=== PATIENT | female | born 1970 | race Hispanic/Latino ===

== ENCOUNTER 2023-11-06 07:08 | Emergency (ER) | payer OTHER ==
[~2023-11-06] VITALS: Ht 165.1 cm; Wt 95.3 kg
[2023-11-06 07:10] VITALS: TEMP 97.7
[2023-11-06] MEDS: ONDANSETRON HCL INJ 2MG/ML 2ML 2 MG/ML VIAL IV STA (07:50)
[2023-11-06] MEDS: SODIUM CHLORIDE 0.9% 1000ML 1,000 ML IV STA (07:50)
[2023-11-06 07:57] VITALS: PULSE 71; RESP 15
[2023-11-06 08:22] LABS: BASOPHILS % 0.5 % (0.0-1.0); EOSINOPHILS % 0.1 % (0.0-6.0); HEMATOCRIT 39.3 % (34.2-44.1); HEMOGLOBIN 12.7 g/dL (12.0-16.0); LYMPHOCYTES # (AUTO) 1.1 (1.0-3.2); LYMPHOCYTES % 14.2 % (18.0-39.1); MEAN CORPUSCULAR HEMOGLOBIN 30.7 pg (28-32); MEAN CORPUSCULAR HGB CONC 32.3 g/dL (31-35); MEAN CORPUSCULAR VOLUME 94.9 fL (81-99); MONOCYTES # (AUTO) 0.7 (0.2-0.8); MONOCYTES % 9.5 % (4.4-11.3); NEUTROPHILS # (AUTO) 5.7 (2.1-6.9); NEUTROPHILS % 75.2 % (38.7-80.0); PLATELET COUNT 193 x10e3/uL (140-360); RED BLOOD COUNT 4.14 x10e6/uL (3.6-5.1); RED CELL DISTRIBUTION WIDTH 12.9 % (11.7-14.4); WHITE BLOOD COUNT 7.65 x10e3/uL (4.8-10.8)
[2023-11-06 08:45] LABS: COVID 19 ANTIGEN NOT DETECTED (NEGATIVE)
[2023-11-06 08:55] LABS: BLOOD UREA NITROGEN 8 mg/dL (7-26); BUN/CREATININE RATIO 10 (6-25); CALCIUM 9.4 mg/dL (8.4-10.2); CHLORIDE 105 mmol/L (98-107); CREATININE, SERUM 0.83 mg/dL (0.57-1.11); EST GLOMERULAR FILTRATION RATE 84 ML/MIN (>=60); GLUCOSE 96 mg/dL (74-118); SODIUM 138 mmol/L (136-145)
[2023-11-06 08:56] LABS: POTASSIUM 3.4 mmol/L (3.5-5.1)
[2023-11-06] MEDS: SODIUM CHLORIDE 0.9% 1000ML 1,000 ML IV ONE (09:27)
[2023-11-06 10:24] LABS: ANION GAP 13.5 mmol/L (8-16); CARBON DIOXIDE 22 mmol/L (22-29)
[2023-11-06 11:30] VITALS: BP 142/79; PULSE 68; RESP 18; TEMP 98; O2SAT 98
== END 2023-11-06 11:32 | disposition home or self-care (01) ==
LOC: ER 07:13
DX: R19.7 Diarrhea, unspecified (principal); R11.0 Nausea; R53.1 Weakness; I10 Essential (primary) hypertension; Z11.52 Encounter for screening for COVID-19
CPT/HCPCS: 0223U; 36415; 80048; 85025; 99284; J2405; J7030

== ENCOUNTER 2023-12-03 08:27 | Emergency (ER) | payer OTHER ==
[~2023-12-03] VITALS: Ht 165.1 cm; Wt 95.3 kg
[2023-12-03 08:40] VITALS: TEMP 98.9
[2023-12-03] MEDS: SODIUM CHLORIDE 0.9% 1000ML 1,000 ML IV ONE (09:17)
[2023-12-03] MEDS: KETOROLAC TROMETHAMINE 30 MG/ML VIAL IV STA (09:17)
[2023-12-03 09:46] LABS: BASOPHILS # (AUTO) 0.1 (0.0-0.1); BASOPHILS % 0.4 % (0.0-1.0); EOSINOPHILS % 0.1 % (0.0-6.0); HEMATOCRIT 45.8 % (34.2-44.1); HEMOGLOBIN 14.6 g/dL (12.0-16.0); LYMPHOCYTES # (AUTO) 1.2 (1.0-3.2); MEAN CORPUSCULAR HEMOGLOBIN 30.6 pg (28-32); MEAN CORPUSCULAR HGB CONC 31.9 g/dL (31-35); MONOCYTES # (AUTO) 1.6 (0.2-0.8); MONOCYTES % 9.4 % (4.4-11.3); NEUTROPHILS # (AUTO) 13.6 (2.1-6.9); NEUTROPHILS % 82.6 % (38.7-80.0); PLATELET COUNT 245 x10e3/uL (140-360); RED BLOOD COUNT 4.77 x10e6/uL (3.6-5.1); RED CELL DISTRIBUTION WIDTH 12.9 % (11.7-14.4); WHITE BLOOD COUNT 16.44 x10e3/uL (4.8-10.8)
[2023-12-03 09:56] LABS: BILIRUBIN,URINE NEGATIVE (NEGATIVE); CLARITY,URINE CLOUDY (CLEAR); COLOR,URINE YELLOW (YELLOW); GLUCOSE, URINE NEGATIVE (NEGATIVE); KETONES,URINE NEGATIVE (NEGATIVE); LEUKOCYTE ESTERASE ,URINE MODERATE (NEGATIVE); NITRITE,URINE POSITIVE (NEGATIVE); PH,URINE 5.5 (5 - 7); PROTEIN,URINE DIPSTICK 2+ (NEGATIVE); URINE UROBILINOGEN 1 mg/dL (0.2 - 1)
[2023-12-03 10:02] LABS: BACTERIA,URINE MODERATE /HPF; EPITHELIAL CELLS,URINE FEW /LPF; RBC,URINE 21-50 /HPF (0-5); WBC,URINE (MAN) >50 /HPF (0-5)
[2023-12-03 10:12] LABS: ALBUMIN 3.8 g/dL (3.5-5.0); ALBUMIN/GLOBULIN RATIO 0.8 (0.8-2.0); ANION GAP 15.8 mmol/L (8-16); BILIRUBIN,TOTAL 0.7 mg/dL (0.2-1.2); CREATININE, SERUM 1.28 mg/dL (0.57-1.11); POTASSIUM 3.8 mmol/L (3.5-5.1); TOTAL PROTEIN 8.5 g/dL (6.5-8.1)
[2023-12-03 10:30] VITALS: PULSE 82; RESP 16; O2SAT 96
[2023-12-03] MEDS ORDERED: IOPAMIDOL 370 MG/ML 100 ML INFUS..BTL INJ ONE (10:50)
[2023-12-03] MEDS ORDERED: CEPHALEXIN500 MG PO (11:33)
== END 2023-12-03 11:56 | disposition home or self-care (01) ==
LOC: ER 08:35
DX: R30.0 Dysuria (principal); N39.0 Urinary tract infection, site not specified; R31.9 Hematuria, unspecified; R10.31 Right lower quadrant pain; M54.50 Low back pain, unspecified; I10 Essential (primary) hypertension
CPT/HCPCS: 36415; 74177; 80053; 81001; 83605; 85025; 87040; 87086; 87186; 99284; J0696; J1885; J7030; Q9967

== ENCOUNTER 2024-09-19 13:34 | Emergency (ER) | payer OTHER ==
[~2024-09-19] VITALS: Ht 162.6 cm; Wt 87.1 kg
[~2024-09-19 13:34] MED LIST: CEPHALEXIN500 MG PO
[2024-09-19 13:55] VITALS: TEMP 98.5
[2024-09-19] MEDS ORDERED: HYDROCHLOROTHIA25 MG PO (14:28)
[2024-09-19] MEDS ORDERED: PANTOPRAZOLE SO40 MG (14:28)
[2024-09-19] MEDS ORDERED: ESTRADIOL1 MG (14:28)
[2024-09-19] MEDS ORDERED: CARVEDILOL3.125 MG (14:28)
[2024-09-19] MEDS ORDERED: ASPIRIN EC81 MG (14:28)
[2024-09-19] MEDS ORDERED: MELOXICAM15 MG (14:28)
[2024-09-19 14:29] LABS: BASOPHILS % 0.5 % (0.0-1.0); EOSINOPHILS % 0.1 % (0.0-6.0); LYMPHOCYTES % 10.9 % (18.0-39.1); MONOCYTES % 9.3 % (4.4-11.3); NEUTROPHILS % 78.7 % (38.7-80.0); RED CELL DISTRIBUTION WIDTH 13.0 % (11.7-14.4)
[2024-09-19 14:31] LABS: LEUKOCYTE ESTERASE ,URINE LARGE (NEGATIVE); PROTEIN,URINE DIPSTICK 1+ (NEGATIVE); URINE UROBILINOGEN 0.2 mg/dL (0.2 - 1)
[2024-09-19] MEDS: KETOROLAC TROMETHAMINE 30 MG/ML VIAL IV STA (14:35)
[2024-09-19] MEDS: SODIUM CHLORIDE 0.9% 1000ML 1,000 ML IV ONE (14:36)
[2024-09-19] MEDS: ONDANSETRON HCL INJ 2MG/ML 2ML 2 MG/ML VIAL IV STA (14:36)
[2024-09-19 14:46] LABS: EPITHELIAL CELLS,URINE MANY /LPF; WBC,URINE (MAN) >50 /HPF (0-5)
[2024-09-19 14:49] LABS: EST GLOMERULAR FILTRATION RATE 67.0 ML/MIN (>=60)
[2024-09-19] MEDS ORDERED: CEFPODOXIME PR200 MG PO (14:57)
[2024-09-19 15:00] VITALS: PULSE 80; RESP 20; O2SAT 100
[2024-09-19] MEDS ORDERED: ONDANSETRON ODT4 MG PO (18:29)
== END 2024-09-19 15:39 | disposition home or self-care (01) ==
LOC: ER 14:07
DX: R30.0 Dysuria (principal); N39.0 Urinary tract infection, site not specified; R11.0 Nausea; I10 Essential (primary) hypertension
CPT/HCPCS: 36415; 80053; 81001; 85025; 87086; 87186; 99284; J1885; J2405; J7030